=== PATIENT | female | born 1955 | race Caucasian/White ===

== ENCOUNTER → 2018-10-24 | Outpatient (CLI) | payer MEDICARE | END | disposition home or self-care (01) | LOC: PCVCCLINIC 15:00 | PROVIDERS: ATTEND Internal Medicine | DX: R60.0 Localized edema (principal); R00.2 Palpitations; R01.1 Cardiac murmur, unspecified; I10 Essential (primary) hypertension; I63.10 Cerebral infarction due to embolism of unspecified precerebral artery; G40.909 Epilepsy, unspecified, not intractable, without status epilepticus; Z86.79 Personal history of other diseases of the circulatory system; Z88.8 Allergy status to other drugs, medicaments and biological substances; Z79.899 Other long term (current) drug therapy; Z72.89 Other problems related to lifestyle | CPT/HCPCS: 93005; G0463 ==

== ENCOUNTER → 2018-11-28 | Outpatient (CLI) | payer MEDICARE ==
--- NOTE | 2018-11-28 16:31 | PCVCIMAG ---
APPROVED REPORT Study performed: 11/28/2018 12:54:12 EXAM: Comprehensive 2D, Doppler, and color-flow Echocardiogram Patient Location: Echo lab Status: routine BSA: 1.87 HR: 60 bpmBP: 140/80 mmHg Rhythm: NSR Other Information Study Quality: Adequate Risk Factors: Cardiac Risk Factors: HTN, Hyperlipidemia Indications Hypertension/HDD CVA, Edema, Seizures, Murmur 2D Dimensions IVSd: 11.54 (7-11mm)LVOT Diam: 19.67 (18-24mm) LVDd: 43.66 mm PWd: 11.29 (7-11mm)Ascending Ao: 36.02 (22-36mm) LVDs: 26.42 (25-40mm) Left Atrium: 38.64 (27-40mm) Aortic Root: 29.13 mm LV Single Plane 4CH: 57.29 % LV Single Plane 2CH: 49.78 % Biplane EF: 55.2 % Volumes Left Atrial Volume (Systole) Single Plane 4CH: 38.62 mLSingle Plane 2CH: 57.98 mL LA ESV Index: 28.00 mL/m2 Aortic Valve AoV Peak Rob.: 2.16 m/s AO Peak Gr.: 18.72 mmHgLVOT Max P.04 mmHg AO Mean Gr.: 9.87 mmHgLVOT Mean P.54 mmHg AO V2 Mean: 1.50 m/sLVOT Max V: 1.79 m/s AO V2 VTI: 43.06 cmLVOT Mean V: 1.19 m/s CINDY (VTI): 2.50 or8YPYD V1 VTI: 35.50 cm CINDY Vmax: 2.51 cm2 SV (LVOT): 107.80 mL Mitral Valve E/A Ratio: 1.0 MV Decel. Time: 255.61 ms MV E Max Rob.: 0.99 m/s MV A Rob.: 1.01 m/s IVRT: 89.97 ms TDI E/Lateral E': 12.38E/Medial E': 11.00 Medial E' Rob.: 0.09 m/s Lateral E' Rob.: 0.08 m/s Pulmonary Valve PV Peak Gr.: 5.67 mmHg Pulmonary Vein P Vein S: 0.95 m/sP Vein A: 0.30 m/s P Vein D: 0.71 m/sP Vein A Dur.: 110.7 msec P Vein S/D Ratio: 1.34 Tricuspid Valve TR Peak Rob.: 2.76 m/s TR Peak Gr.: 30.42 mmHg Left Ventricle The left ventricle is normal size. There is normal LV segmental wall motion. There is normal left ventricular wall thickness. Left ventricular systolic function is normal. The left ventricular ejection fraction is within the normal range. LVEF is 60-65%. The left ventricular diastolic function is normal. Right Ventricle The right ventricle is normal size. The right ventricular systolic function is normal. Atria The left atrium size is normal. The right atrium size is normal. Aortic Valve mild thickening of the aortic valve. No aortic regurgitation is present. There is no aortic valvular stenosis. Mitral Valve The mitral valve is normal in structure. There is no mitral valve regurgitation noted. No evidence of mitral valve stenosis. Tricuspid Valve The tricuspid valve is normal in structure. There is no tricuspid valve regurgitation noted. Pulmonic Valve The pulmonary valve is normal in structure. There is no pulmonic valvular regurgitation. Great Vessels The aortic root is normal in size. IVC is normal in size and collapses >50% with inspiration. Pericardium There is no pericardial effusion. <Conclusion> The left ventricle is normal size. LVEF is 60-65%. mild thickening of the aortic valve. There is no aortic valvular stenosis. The mitral valve is normal in structure. The tricuspid valve is normal in structure. The pulmonary valve is normal in structure. There is no pericardial effusion.
== END | disposition home or self-care (01) ==
LOC: PCVCIMAG 12:47
PROVIDERS: ATTEND Internal Medicine
DX: R01.1 Cardiac murmur, unspecified (principal); I10 Essential (primary) hypertension; R00.2 Palpitations; I63.9 Cerebral infarction, unspecified; Z88.1 Allergy status to other antibiotic agents
CPT/HCPCS: 93306; G0463